=== PATIENT | female | born 1940 | race Two or more races ===

== ENCOUNTER 2020-08-21 17:05 | Emergency (ER) | payer OTHER ==
[~2020-08-21] VITALS: Ht 175.3 cm; Wt 69.4 kg
[2020-08-21 20:33] LABS: Basophils # (auto) 0 10 ^3/uL (0-0.2); Basophils % (auto) 0.2 % (0.0-2.0); Eosinophils # (auto) 0.1 10 ^3/uL (0-0.8); Eosinophils % (auto) 0.9 % (0.0-7.0); Hematocrit 39.3 % (36.0-46.0); Hemoglobin 12.9 g/dL (12.2-16.2); Lymphocytes # (auto) 0.5 10 ^3/uL (0.4-5.4); Lymphocytes % (auto) 5.7 % (10.0-50.0); Mean Corpuscular Hemoglobin 29.1 pg (28.0-32.0); Mean Corpuscular Hgb Conc. 32.9 g/dL (32.0-36.0); Mean Corpuscular Volume 88.5 fL (80.0-100.0); Monocytes # (auto) 0.5 10 ^3/uL (0-1.3); Monocytes % (auto) 5.9 % (0.0-12.0); Neutrophils # (auto) 7.5 10 ^3/uL (1.6-8.6); Neutrophils % (auto) 87.3 % (37.0-80.0); Platelet Count (auto) 205 10^3/uL (140-450); Red Blood Cells 4.44 10^6/uL (4.0-5.20); Red Cell Distribution Width 14.2 % (11.8-14.3); White Blood Cell 8.6 10^3/uL (4.4-10.8)
[2020-08-21 20:48] LABS: Albumin 3.9 g/dL (3.4-5.0); Calcium 8.6 mg/dL (8.5-10.1); Potassium 3.8 mmol/L (3.5-5.1)
[2020-08-21 20:50] LABS: Bilirubin, Total 0.6 mg/dL (0.2-1.0); Total Protein 7.2 g/dL (6.4-8.2)
[2020-08-22 04:00] VITALS: BP 134/51
== END 2020-08-22 04:30 | disposition home or self-care (01) ==
LOC: ER 17:05
DX: R33.9 Retention of urine, unspecified (principal); K59.00 Constipation, unspecified; R10.819 Abdominal tenderness, unspecified site
CPT/HCPCS: 36415; 74176; 80053; 85025

== ENCOUNTER 2020-08-24 15:49 | Emergency (ER) | payer OTHER ==
[~2020-08-24] VITALS: Ht 175.3 cm; Wt 69.4 kg
[2020-08-24 16:29] VITALS: BP 137/84
[2020-08-24 19:32] LABS: Urine Bacteria NONE SEEN /hpf (None Seen); Urine Blood 4+ /uL (Negative); Urine Specific Gravity 1.022 (1.001-1.035); Urine WBC 15 /hpf (0 - 5)
[2020-08-24] MEDS ORDERED: SODIUM CHLORIDE 0.9% 1,000 ML IV ONE (21:15)
== END 2020-08-24 19:35 | disposition left against medical advice (07) ==
LOC: ER 15:49
DX: R31.9 Hematuria, unspecified (principal); Z53.21 Procedure and treatment not carried out due to patient leaving prior to being seen by health care provider
CPT/HCPCS: 81001; 87086

== ENCOUNTER 2020-08-25 20:17 | Inpatient (IN) | payer OTHER ==
[~2020-08-25] VITALS: Ht 175.3 cm; Wt 70.5 kg
[2020-08-25] MEDS: SODIUM CHLORIDE 0.9% 1,000 ML IV SCH (12:51)
[2020-08-25 22:00] VITALS: BP 119/65
[2020-08-25] MEDS ORDERED: NITROGLYCERIN 0.4 MG SL TAB SL PRN (22:00)
[2020-08-25] MEDS ORDERED: ACETAMINOPHEN 325 MG TAB PO PRN (22:00)
[2020-08-25] MEDS ORDERED: cefTRIAXone 1GM/50ML D5W 50 ML IV ONE (22:00)
[2020-08-25] MEDS ORDERED: MORPHINE SULF INJ 2 MG/ML SYRINGE 1ML IV PRN (22:00)
[2020-08-25] MEDS: FAMOTIDINE 20 MG TAB PO SCH (22:00)
[2020-08-25] MEDS ORDERED: ONDANSETRON HCL 4 MG/2 ML VIAL IV PRN (22:00)
[2020-08-25] MEDS ORDERED: TEMAZEPAM 15 MG CAP PO PRN (22:00)
[2020-08-25 22:23] LABS: Basophils # (auto) 0 10 ^3/uL (0-0.2); Basophils % (auto) 0.4 % (0.0-2.0); Eosinophils # (auto) 0.1 10 ^3/uL (0-0.8); Eosinophils % (auto) 3.4 % (0.0-7.0); Hematocrit 32.3 % (36.0-46.0); Hemoglobin 10.7 g/dL (12.2-16.2); Lymphocytes # (auto) 0.4 10 ^3/uL (0.4-5.4); Lymphocytes % (auto) 10.3 % (10.0-50.0); Mean Corpuscular Hemoglobin 29.3 pg (28.0-32.0); Mean Corpuscular Hgb Conc. 33.2 g/dL (32.0-36.0); Mean Corpuscular Volume 88.2 fL (80.0-100.0); Monocytes # (auto) 0.5 10 ^3/uL (0-1.3); Monocytes % (auto) 15.1 % (0.0-12.0); Neutrophils # (auto) 2.4 10 ^3/uL (1.6-8.6); Neutrophils % (auto) 70.8 % (37.0-80.0); Platelet Count (auto) 163 10^3/uL (140-450); Red Blood Cells 3.66 10^6/uL (4.0-5.20); Red Cell Distribution Width 14.5 % (11.8-14.3); White Blood Cell 3.4 10^3/uL (4.4-10.8)
[2020-08-25 22:45] LABS: Albumin 3.2 g/dL (3.4-5.0); BUN/Creatinine Ratio 13.6; Bilirubin, Total 0.2 mg/dL (0.2-1.0); Calcium 8.5 mg/dL (8.5-10.1); Potassium 3.8 mmol/L (3.5-5.1); Total Protein 5.9 g/dL (6.4-8.2)
[2020-08-26 05:00] VITALS: BP 120/55
[2020-08-26 07:07] LABS: Hematocrit 32.3 % (36.0-46.0); Hemoglobin 10.3 g/dL (12.2-16.2); Mean Corpuscular Hemoglobin 28.3 pg (28.0-32.0); Mean Corpuscular Volume 88.7 fL (80.0-100.0); Platelet Count (auto) 163 10^3/uL (140-450); Red Blood Cells 3.64 10^6/uL (4.0-5.20); Red Cell Distribution Width 14.4 % (11.8-14.3); White Blood Cell 2.4 10^3/uL (4.4-10.8)
[2020-08-26 07:08] LABS: Basophils % (manual) 0 (0.0-2.0); Blast Cells 0; Metamyelocytes % 0; Myelocytes % 0; Promyelocytes % 0; Reactive Lymphocytes 0
[2020-08-26 07:26] LABS: Calcium 8.1 mg/dL (8.5-10.1); Potassium 3.5 mmol/L (3.5-5.1)
[2020-08-26 07:29] LABS: BUN/Creatinine Ratio 11.1
[2020-08-26 08:45] VITALS: BP 131/75
[2020-08-26 08:49] LABS: INR 0.97 (0.9-1.15); Partial Thromboplastin Time 23.6 sec (23.0-31.2)
[2020-08-26] MEDS: cefTRIAXone 1GM/50ML D5W 50 ML IV SCH (09:48)
[2020-08-26] MEDS: FAMOTIDINE 20 MG TAB PO SCH ×2 (09:48→22:32)
[2020-08-26] MEDS: SODIUM CHLORIDE 0.9% 1,000 ML IV SCH (09:48)
[2020-08-26 10:27] LABS: Band Neutrophils % (manual) 2; Eosinophils % (manual) 5 (0-7); Lymphocytes % (manual) 8 (10.0-50.0); Monocytes % (manual) 15 (0-12)
[2020-08-26 13:00] VITALS: BP 111/57
[2020-08-26 16:36] VITALS: BP 105/49
[2020-08-26] MEDS: HYDROcodone-ACET 5/325MG TAB PO PRN (18:11)
[2020-08-26 20:00] VITALS: BP 102/86
[2020-08-26 22:00] VITALS: BP 101/59
[2020-08-27] MEDS: SODIUM CHLORIDE 0.9% 1,000 ML IV SCH ×2 (00:40→14:00)
[2020-08-27 05:00] VITALS: BP 119/48
[2020-08-27 05:47] LABS: Hemoglobin 10.5 g/dL (12.2-16.2)
[2020-08-27] MEDS: HYDROcodone-ACET 5/325MG TAB PO PRN (09:59)
[2020-08-27] MEDS: cefTRIAXone 1GM/50ML D5W 50 ML IV SCH (09:59)
[2020-08-27] MEDS: FAMOTIDINE 20 MG TAB PO SCH (10:00)
[2020-08-27 13:00] VITALS: BP 115/59
== END 2020-08-27 16:05 | disposition home or self-care (01) | DRG 696 ==
LOC: TELE-WESTW 20:17
PROVIDERS: ADMIT Nurse Practitioner; ATTEND Internal Medicine
DX: R31.0 Gross hematuria (principal); E03.9 Hypothyroidism, unspecified; D50.0 Iron deficiency anemia secondary to blood loss (chronic); K59.00 Constipation, unspecified; N13.9 Obstructive and reflux uropathy, unspecified
CPT/HCPCS: 36415; 80048; 80053; 85007; 85014; 85018; 85025; 85027; 85610; 85730; 86850; 86900; 86901; G0378; J0696

== ENCOUNTER 2020-08-30 09:49 | Inpatient (IN) | payer OTHER ==
[~2020-08-30] VITALS: Ht 175.3 cm; Wt 72.5 kg
[2020-08-30 10:46] LABS: Basophils # (auto) 0 10 ^3/uL (0-0.2); Basophils % (auto) 0.6 % (0.0-2.0); Eosinophils # (auto) 0 10 ^3/uL (0-0.8); Eosinophils % (auto) 0.7 % (0.0-7.0); Hematocrit 29.4 % (36.0-46.0); Hemoglobin 9.6 g/dL (12.2-16.2); Lymphocytes # (auto) 0.4 10 ^3/uL (0.4-5.4); Lymphocytes % (auto) 13.5 % (10.0-50.0); Mean Corpuscular Hemoglobin 28.5 pg (28.0-32.0); Mean Corpuscular Hgb Conc. 32.7 g/dL (32.0-36.0); Monocytes # (auto) 0.3 10 ^3/uL (0-1.3); Monocytes % (auto) 12.1 % (0.0-12.0); Neutrophils # (auto) 2.1 10 ^3/uL (1.6-8.6); Neutrophils % (auto) 73.1 % (37.0-80.0); Nucleated Red Blood Cells % 0.1 %; Platelet Count (auto) 162 10^3/uL (140-450); Red Blood Cells 3.37 10^6/uL (4.0-5.20); Red Cell Distribution Width 14.3 % (11.8-14.3); White Blood Cell 2.8 10^3/uL (4.4-10.8)
[2020-08-30 10:58] LABS: Albumin 3.1 g/dL (3.4-5.0); Calcium 8.1 mg/dL (8.5-10.1); Potassium 3.7 mmol/L (3.5-5.1)
[2020-08-30 11:01] LABS: Bilirubin, Total 0.3 mg/dL (0.2-1.0); Total Protein 5.9 g/dL (6.4-8.2)
[2020-08-30] MEDS ORDERED: ACETAMINOPHEN 500 MG TAB PO PRN (14:30)
[2020-08-30] MEDS ORDERED: HYDROcodone-ACET 5/325MG TAB PO PRN (14:30)
[2020-08-30] MEDS ORDERED: ONDANSETRON HCL 4 MG/2 ML VIAL IV PRN (14:30)
[2020-08-30] MEDS ORDERED: MORPHINE SULF INJ 2 MG/ML SYRINGE 1ML IV PRN ×2 (14:30)
[2020-08-30] MEDS ORDERED: SODIUM CHLORIDE 0.9% 1,000 ML IV ONE (14:30)
[2020-08-30] MEDS ORDERED: NITROGLYCERIN 0.4 MG SL TAB SL PRN (14:30)
[2020-08-30 15:29] LABS: Urine Bacteria NONE SEEN /hpf (None Seen); Urine Blood 3+ /uL (Negative); Urine WBC 703 /hpf (0 - 5); Urine WBC Clumps PRESENT /hpf (None Seen)
[2020-08-30 15:31] LABS: CRP High Sensitivity 0.9 mg/dL (< 0.3); Magnesium 2.3 mg/dL (1.6-2.6)
[2020-08-30 16:55] LABS: INR 0.98 (0.9-1.15); Partial Thromboplastin Time 21.2 sec (23.0-31.2)
[2020-08-31 07:33] LABS: Basophils # (auto) 0 10 ^3/uL (0-0.2); Basophils % (auto) 0.5 % (0.0-2.0); Eosinophils # (auto) 0 10 ^3/uL (0-0.8); Eosinophils % (auto) 0.9 % (0.0-7.0); Hematocrit 31.6 % (36.0-46.0); Hemoglobin 10.3 g/dL (12.2-16.2); Lymphocytes # (auto) 1.1 10 ^3/uL (0.4-5.4); Mean Corpuscular Hemoglobin 28.6 pg (28.0-32.0); Mean Corpuscular Hgb Conc. 32.6 g/dL (32.0-36.0); Mean Corpuscular Volume 87.9 fL (80.0-100.0); Monocytes # (auto) 0.5 10 ^3/uL (0-1.3); Monocytes % (auto) 12.2 % (0.0-12.0); Neutrophils # (auto) 2.5 10 ^3/uL (1.6-8.6); Neutrophils % (auto) 59.4 % (37.0-80.0); Nucleated Red Blood Cells % 0.1 %; Platelet Count (auto) 214 10^3/uL (140-450); Red Cell Distribution Width 14.1 % (11.8-14.3); White Blood Cell 4.1 10^3/uL (4.4-10.8)
[2020-08-31 08:03] LABS: Albumin 2.9 g/dL (3.4-5.0); Calcium 8.1 mg/dL (8.5-10.1); Potassium 3.9 mmol/L (3.5-5.1)
[2020-08-31 08:08] LABS: BUN/Creatinine Ratio 12.7; Bilirubin, Total 0.4 mg/dL (0.2-1.0); Total Protein 6.2 g/dL (6.4-8.2)
[2020-08-31] MEDS: ASCORBIC ACID 1,000 MG TAB PO SCH (09:55)
[2020-08-31] MEDS: CHOLECALCIFEROL (VITD3) 2,000 UNIT CAP PO SCH (09:55)
[2020-08-31] MEDS: PANTOPRAZOLE 40 MG/10 ML VIAL INJ IV SCH (09:55)
[2020-08-31] MEDS ORDERED: ZINC SULFATE 220mg CAP or TAB PO ONE (16:00)
[2020-08-31] MEDS ORDERED: DexAMETHasone SOD PHOS 10MG/1ML VIAL INJ IV ONE (16:00)
[2020-08-31] MEDS ORDERED: DOXYCYCLINE 100 MG TAB/CAP PO ONE (16:00)
[2020-08-31] MEDS ORDERED: IOHEXOL 350 MG/ML 100ML IJ ONE (16:28)
[2020-08-31] MEDS ORDERED: ALEN70TA3 PO (19:44)
[2020-08-31] MEDS: DOXYCYCLINE 100 MG TAB/CAP PO SCH (21:39)
[2020-08-31 22:00] VITALS: BP 104/50
[2020-08-31] MEDS: ALBUTEROL SULF HFA 90MCG INH 200DOSE IN SCH (22:00)
[2020-09-01 03:36] VITALS: BP 104/50
[2020-09-01 05:00] VITALS: BP 125/67
[2020-09-01 05:35] LABS: Basophils # (auto) 0 10 ^3/uL (0-0.2); Eosinophils # (auto) 0 10 ^3/uL (0-0.8); Eosinophils % (auto) 0.1 % (0.0-7.0); Lymphocytes # (auto) 0.2 10 ^3/uL (0.4-5.4); Monocytes # (auto) 0.2 10 ^3/uL (0-1.3); Monocytes % (auto) 12.6 % (0.0-12.0); Neutrophils # (auto) 1.3 10 ^3/uL (1.6-8.6); Nucleated Red Blood Cells % 0.1 %
[2020-09-01 05:38] LABS: Basophils % (auto) 0.1 % (0.0-2.0); Hematocrit 30.1 % (36.0-46.0); Hemoglobin 9.8 g/dL (12.2-16.2); Lymphocytes % (auto) 11.4 % (10.0-50.0); Mean Corpuscular Hemoglobin 28.5 pg (28.0-32.0); Mean Corpuscular Hgb Conc. 32.5 g/dL (32.0-36.0); Mean Corpuscular Volume 87.8 fL (80.0-100.0); Neutrophils % (auto) 75.8 % (37.0-80.0); Platelet Count (auto) 177 10^3/uL (140-450); Red Blood Cells 3.43 10^6/uL (4.0-5.20); Red Cell Distribution Width 14.2 % (11.8-14.3)
[2020-09-01 05:53] LABS: Potassium 3.9 mmol/L (3.5-5.1)
[2020-09-01 05:53] LABS: White Blood Cell 1.8 10^3/uL (4.4-10.8)
[2020-09-01 06:00] LABS: Albumin 2.9 g/dL (3.4-5.0); BUN/Creatinine Ratio 23.9; Bilirubin, Total 0.2 mg/dL (0.2-1.0); Calcium 8.3 mg/dL (8.5-10.1); Magnesium 2.8 mg/dL (1.6-2.6)
[2020-09-01] MEDS: ALBUTEROL SULF HFA 90MCG INH 200DOSE IN SCH ×3 (06:35→22:27)
[2020-09-01] MEDS ORDERED: LEVO50TA7 PO (08:20)
[2020-09-01] MEDS ORDERED: MULT-902 OR (08:20)
[2020-09-01 09:00] VITALS: BP 101/55
[2020-09-01] MEDS ORDERED: PATIENTS OWN MEDICATION PO SCH (10:00)
[2020-09-01] MEDS: DexAMETHasone SOD PHOS 10MG/1ML VIAL INJ IV SCH (10:57)
[2020-09-01] MEDS: ZINC SULFATE 220mg CAP or TAB PO SCH (10:58)
[2020-09-01] MEDS: ASCORBIC ACID 1,000 MG TAB PO SCH (10:58)
[2020-09-01] MEDS: DOXYCYCLINE 100 MG TAB/CAP PO SCH ×2 (10:58→21:35)
[2020-09-01] MEDS: CHOLECALCIFEROL (VITD3) 2,000 UNIT CAP PO SCH (10:58)
[2020-09-01] MEDS: PANTOPRAZOLE 40 MG/10 ML VIAL INJ IV SCH (10:58)
[2020-09-01] MEDS ORDERED: LEVOTHYROXINE SODIUM 100 MCG TAB PO ONE (12:00)
[2020-09-01] MEDS: AMINOCAPROIC ACID IR SCH (12:00)
[2020-09-01] MEDS: SODIUM CHLORIDE IRRIGATION IR SCH (12:00)
[2020-09-01 12:33] VITALS: BP 147/66
[2020-09-01] MEDS ORDERED: FUROSEMIDE 20 MG/2 ML VIAL IV ONE (16:00)
[2020-09-01] MEDS ORDERED: DEXTROSE (50%) 50ML SYRG IV PRN (16:00)
[2020-09-01] MEDS ORDERED: POTASSIUM CHL 10 Meq TABLET PO ONE (16:00)
[2020-09-01 16:36] VITALS: BP 128/61
[2020-09-01] MEDS: ACCU-CHEK COMFORT CURVE STRIP VI SCH ×2 (16:50→21:35)
[2020-09-01] MEDS: InsuLIN REG 1unit/0.01ml Soln (100units/ml) SC SCH ×2 (17:04→21:36)
[2020-09-01 22:11] VITALS: BP 115/62
[2020-09-02] VITALS (9 sets, daily range): BP systolic 101–137; BP diastolic 44–69
[2020-09-02] MEDS: ALBUTEROL SULF HFA 90MCG INH 200DOSE IN SCH ×3 (05:55→18:40)
[2020-09-02] MEDS: InsuLIN REG 1unit/0.01ml Soln (100units/ml) SC SCH ×4 (07:00→22:00)
[2020-09-02] MEDS: ACCU-CHEK COMFORT CURVE STRIP VI SCH ×4 (07:00→22:00)
[2020-09-02] MEDS: LEVOTHYROXINE SODIUM 50 MCG TAB PO SCH (07:00)
[2020-09-02 07:03] LABS: Basophils # (auto) 0 10 ^3/uL (0-0.2); Basophils % (auto) 0.1 % (0.0-2.0); Eosinophils # (auto) 0 10 ^3/uL (0-0.8); Eosinophils % (auto) 0.1 % (0.0-7.0); Hematocrit 31.3 % (36.0-46.0); Hemoglobin 10.4 g/dL (12.2-16.2); Lymphocytes # (auto) 0.4 10 ^3/uL (0.4-5.4); Lymphocytes % (auto) 5.6 % (10.0-50.0); Mean Corpuscular Hemoglobin 28.9 pg (28.0-32.0); Mean Corpuscular Hgb Conc. 33.3 g/dL (32.0-36.0); Mean Corpuscular Volume 86.9 fL (80.0-100.0); Monocytes # (auto) 0.5 10 ^3/uL (0-1.3); Monocytes % (auto) 6.8 % (0.0-12.0); Neutrophils # (auto) 6.3 10 ^3/uL (1.6-8.6); Neutrophils % (auto) 87.4 % (37.0-80.0); Nucleated Red Blood Cells % 0.1 %; Platelet Count (auto) 263 10^3/uL (140-450); Red Cell Distribution Width 14.3 % (11.8-14.3); White Blood Cell 7.2 10^3/uL (4.4-10.8)
[2020-09-02 07:21] LABS: Potassium 3.6 mmol/L (3.5-5.1)
[2020-09-02 07:40] LABS: BUN/Creatinine Ratio 28.1; Calcium 9.1 mg/dL (8.5-10.1)
[2020-09-02] MEDS ORDERED: fentaNYL CITRATE 100 MCG/2 ML VL IV ONE (09:15)
[2020-09-02] MEDS ORDERED: MIDAZOLAM HCL 1MG/1ML-2 ML VIAL IV ONE (09:15)
[2020-09-02] MEDS: PANTOPRAZOLE 40 MG/10 ML VIAL INJ IV SCH (09:47)
[2020-09-02] MEDS: SODIUM CHLORIDE IRRIGATION IR SCH (09:47)
[2020-09-02] MEDS: AMINOCAPROIC ACID IR SCH (09:47)
[2020-09-02] MEDS: DexAMETHasone SOD PHOS 10MG/1ML VIAL INJ IV SCH (09:47)
[2020-09-02] MEDS ORDERED: LIDOCAINE 2%HCL (LOCAL ANESTH.) INJ 20ML MDV ONE (09:55)
[2020-09-02] MEDS ORDERED: HEPARIN IN NS 1000Units/500mL 0 ML ONE (09:55)
[2020-09-02] MEDS ORDERED: IODIXANOL 320MG/ML 100ML BTL IV ONE (09:55)
[2020-09-02] MEDS: ZINC SULFATE 220mg CAP or TAB PO SCH (10:00)
[2020-09-02] MEDS: ASCORBIC ACID 1,000 MG TAB PO SCH (10:00)
[2020-09-02] MEDS: CHOLECALCIFEROL (VITD3) 2,000 UNIT CAP PO SCH (10:00)
[2020-09-02] MEDS: DOXYCYCLINE 100 MG TAB/CAP PO SCH ×2 (10:00→21:30)
[2020-09-02] MEDS ORDERED: TETRACAINE 1% INJ 2 ML VIAL IJ ONE (15:06)
[2020-09-02] MEDS ORDERED: MIDAZOLAM HCL 1MG/1ML-2 ML VIAL ONE (15:15)
[2020-09-02] MEDS ORDERED: CIPROFLOXACIN 400MG/200ML 200 ML IV ONE (15:23)
[2020-09-02] MEDS ORDERED: ONDANSETRON HCL 4 MG/2 ML VIAL IV PRN (17:00)
[2020-09-03 05:00] VITALS: BP 111/53
[2020-09-03] MEDS: ALBUTEROL SULF HFA 90MCG INH 200DOSE IN SCH (06:09)
[2020-09-03] MEDS: LEVOTHYROXINE SODIUM 50 MCG TAB PO SCH (06:38)
[2020-09-03] MEDS: InsuLIN REG 1unit/0.01ml Soln (100units/ml) SC SCH ×3 (06:38→17:00)
[2020-09-03] MEDS: ACCU-CHEK COMFORT CURVE STRIP VI SCH ×3 (06:38→17:12)
[2020-09-03 06:45] LABS: Basophils # (auto) 0 10 ^3/uL (0-0.2); Eosinophils # (auto) 0 10 ^3/uL (0-0.8); Eosinophils % (auto) 0.1 % (0.0-7.0); Hematocrit 28.6 % (36.0-46.0); Hemoglobin 9.4 g/dL (12.2-16.2); Lymphocytes # (auto) 0.4 10 ^3/uL (0.4-5.4); Mean Corpuscular Hemoglobin 28.2 pg (28.0-32.0); Mean Corpuscular Hgb Conc. 32.7 g/dL (32.0-36.0); Mean Corpuscular Volume 86.4 fL (80.0-100.0); Monocytes # (auto) 0.4 10 ^3/uL (0-1.3); Monocytes % (auto) 7.7 % (0.0-12.0); Neutrophils # (auto) 4.3 10 ^3/uL (1.6-8.6); Neutrophils % (auto) 85.2 % (37.0-80.0); Platelet Count (auto) 237 10^3/uL (140-450); Red Blood Cells 3.31 10^6/uL (4.0-5.20); White Blood Cell 5.1 10^3/uL (4.4-10.8)
[2020-09-03 07:17] LABS: CRP High Sensitivity 1.69 mg/dL (< 0.3)
[2020-09-03 08:28] VITALS: BP 87/54
[2020-09-03] MEDS: SODIUM CHLORIDE IRRIGATION IR SCH (10:00)
[2020-09-03] MEDS: AMINOCAPROIC ACID IR SCH (10:00)
[2020-09-03] MEDS: DOXYCYCLINE 100 MG TAB/CAP PO SCH (10:20)
[2020-09-03] MEDS: ASCORBIC ACID 1,000 MG TAB PO SCH (10:20)
[2020-09-03] MEDS: PANTOPRAZOLE 40 MG/10 ML VIAL INJ IV SCH (10:21)
[2020-09-03] MEDS ORDERED: ALBUTEROL SULF HFA 90MCG INH 200DOSE IN PRN (10:30)
[2020-09-03] MEDS ORDERED: CHOL1CAP47 PO (13:06)
[2020-09-03] MEDS ORDERED: FAMO20TA10 PO (13:06)
[2020-09-03] MEDS ORDERED: BUDE2SUS3 IN (13:06)
[2020-09-03] MEDS ORDERED: METH4PAK PO (13:06)
[2020-09-03] MEDS ORDERED: DOXY-286 PO (13:06)
[2020-09-03] MEDS ORDERED: ALBUAER3 IN (13:06)
[2020-09-03] MEDS ORDERED: ZINC220T6 PO (13:06)
[2020-09-03] MEDS ORDERED: ASCO10003 PO (13:06)
[2020-09-03] MEDS: CHOLECALCIFEROL (VITD3) 2,000 UNIT CAP PO SCH (13:12)
[2020-09-03] MEDS: ZINC SULFATE 220mg CAP or TAB PO SCH (13:12)
[2020-09-03] MEDS: DexAMETHasone SOD PHOS 10MG/1ML VIAL INJ IV SCH (13:13)
[2020-09-03 13:19] VITALS: BP 137/69
[2020-09-03 16:31] VITALS: BP 122/62
== END 2020-09-03 20:25 | disposition home health service (06) | DRG 987 ==
LOC: ER 09:49 → TELE 14:21 → TELE-CENTR 08-31 18:26
PROVIDERS: ADMIT Nurse Practitioner Acute Care; ATTEND Internal Medicine
PROC: 0T5B8ZZ Destruction of Bladder, Via Natural or Artificial Opening Endoscopic (ICD-10-PCS; 2020-09-02)
PROC: XW13325 Transfusion of Convalescent Plasma (Nonautologous) into Peripheral Vein, Percutaneous Approach, New Technology Group 5 (ICD-10-PCS; 2020-09-02)
PROC: 0TCB8ZZ Extirpation of Matter from Bladder, Via Natural or Artificial Opening Endoscopic (ICD-10-PCS; principal; 2020-09-02 15:34)
DX: U07.1 COVID-19 (principal); I26.99 Other pulmonary embolism without acute cor pulmonale; J12.89 Other viral pneumonia; E44.0 Moderate protein-calorie malnutrition; R31.0 Gross hematuria; N13.9 Obstructive and reflux uropathy, unspecified; D64.9 Anemia, unspecified; R33.9 Retention of urine, unspecified; K59.00 Constipation, unspecified; M81.0 Age-related osteoporosis without current pathological fracture; E03.9 Hypothyroidism, unspecified; D49.4 Neoplasm of unspecified behavior of bladder; Z87.891 Personal history of nicotine dependence; Z88.2 Allergy status to sulfonamides; Z68.23 Body mass index [BMI] 23.0-23.9, adult
CPT/HCPCS: 36415; 71045; 71275; 80048; 80053; 81001; 82306; 82728; 82962; 83615; 83735; 84443; 85025; 85379; 85610; 85730; 86141; 86850; 86900; 86901; 87081; 87426; 93970; 94640; 97116; 97163; C9113; G0378; J1100; J1815; J2250; Q9967